=== PATIENT | male | born 1940 | race Caucasian/White ===

== ENCOUNTER → 2016-08-28 09:45 | Day surgery (SDC) | payer MEDICARE, OTHER ==
[~2016-08-28] VITALS: Ht 177.8 cm; Wt 86.6 kg
[~2016-08-28 09:45] MED LIST: ATIVAN0.5 MG PO; FLOMAX0.4 MG PO; MIRALAX527 GM PO; PROPAFENONE HC150 MG PO; PROPRANOLOL HCL80 MG PO; SYMBICORT 80-10.2 GM INH; XOPENEX 1.1.25 MG/3 UPD
[2016-08-28 10:27] VITALS: BP 160/77; Ht 177.8 cm; Wt 86.6 kg
--- NOTE | 2016-08-28 14:52 | NUR ---
1340-PATIENT ESCORTED OUT BY VOLUNTEER. WAITING FOR HIM AT [facility].
--- NOTE | 2016-08-29 09:34 | OP ---
PATIENT NAME: YASH SHIRLEY MEDICAL RECORD: [id number] :41 [facility] ADMISSION DATE: SURGEON: JOVANNA ACOSTA MD DATE OF OPERATION: 08/28/2016 SURGEON: Jovanna Acosta MD ANESTHESIA: MAC. PREOPERATIVE DIAGNOSES: Left renal 7-mm stone plus 4-mm stone. FINDINGS: Radiolucent stones, stones had to be visualized by injection of IV contrast. The 4-mm stone was not visible. PROCEDURE: Left extracorporeal shock wave lithotripsy (ESWL) times 3000 shocks. CLINICAL HISTORY: This is a 75-year-old male who has a prior history of kidney stones. He was treated by Dr. Garcia in the past. Most recently, he came in with left renal colic due to a 7-mm stone obstructing the left UP junction on CT scan. There is also a 4-mm lower pole stone. I inserted a left ureteral stent. During that procedure, it was noted that his stones seemed to be radiolucent. I then started him on potassium citrate to alkalinize the urine to dissolve possible uric acid stone. Subsequently, he had a KUB, which suggested a radiodense stone in the renal pelvis. We therefore are arranging for ESWL to try to break up the 7-mm stone. He is also highly irritated by the presence of the ureteral stent and he would like to have it out as soon as possible. DESCRIPTION OF PROCEDURE: The patient was placed in supine position on the lithotripsy treatment table. We performed fluoroscopy. We noted that the radiodensity is actually in the bowel and moves with the bowel. No radiodense stones could be seen. We therefore injected IV contrast. After waiting a suitable amount of time, we noted a good IVP on the right side. On the left side, the contrast was being drained out of the kidney by his stent. Therefore, I removed the stent entirely by pulling it out using the string which hanged out of the urethral meatus. This allowed us to see an IVP of the left kidney. We noted a visible shadow in the lower pole which would correspond to the 7-mm stone. We could not find the 4-mm stone, so it may be that both stones are actually sitting in the lower pole john at this moment. The stone was targeted in 2 planes and 3000 shocks was given to it. It was seen to break up well. The patient will resume using his potassium citrate to continue to dissolve the stone. I asked him to try to hang so that his head is lower than his bottom to let gravity help pull the stone material out of the lower pole john. Because his stone is radiolucent, I will order a CAT scan for him in 2 weeks' time to see what stone burden he has left. TRANSINT:[id number] Voice Confirmation ID: [id number] DOCUMENT ID: [id number] OPERATIVE REPORT [id number] YASH SHIRLEY ROBERT S MD at 0934 CC: [id number] DICTATION DATE: 08/28/16 1314 SKIVER OPERATOR: 08/28/16 2233 [facility] 08/28/16 [address] [address] [place] [address]
== END | disposition home or self-care (01) ==
LOC: D.OPS 09:45
DX: N13.5 Crossing vessel and stricture of ureter without hydronephrosis (principal); N20.0 Calculus of kidney; Z87.442 Personal history of urinary calculi; Z01.812 Encounter for preprocedural laboratory examination

== ENCOUNTER → 2016-09-08 07:49 | Outpatient (CLI) | payer MEDICARE, OTHER ==
[2016-08-28 10:27] VITALS: BMI 27.4
== END | disposition home or self-care (01) ==
LOC: D.RAD 09-04 10:00 → D.CT 07:49
DX: N20.0 Calculus of kidney (principal)

== ENCOUNTER 2016-10-02 05:51 | Day surgery (SDC) | payer MEDICARE, OTHER ==
[~2016-10-02] VITALS: Ht 177.8 cm; Wt 81.8 kg
[2016-10-02] MEDS ORDERED: NORVASC5 MG PO (09:01)
[2016-10-02] MEDS ORDERED: UROCIT-K10 MEQ PO (09:02)
[2016-10-02] MEDS ORDERED: NITROQUICK0.4 MG SL (09:04)
[2016-10-02 09:10] VITALS: BP 128/78; Ht 177.8 cm; Wt 81.8 kg
--- NOTE | 2016-10-02 11:43 | NUR ---
1045-PROCEDURE ABORTED DUE TO INABILITY TO VISUALIZE KIDNEY STONE.
--- NOTE | 2016-10-02 11:44 | NUR ---
1110-IV DISCONTINUED, CATHETER INTACT, COTTON BALL AND COBAN PLACED. DISCHARGE INSTRUCTIONS GIVEN TO PATIENT. 1120-PT. LEFT AMBULATORY WITH AT SIDE.
== END 2016-10-02 11:20 | disposition home or self-care (01) ==
LOC: D.OPS 05:51
DX: N20.0 Calculus of kidney (principal); Z01.812 Encounter for preprocedural laboratory examination

== ENCOUNTER 2016-10-15 17:15 | Inpatient (IN) | payer MEDICARE, OTHER ==
[~2016-10-15] VITALS: Ht 177.8 cm; Wt 82.7 kg
[~2016-10-15 17:15] MED LIST changes: +NITROQUICK0.4 MG SL; +NORVASC5 MG PO; +UROCIT-K10 MEQ PO
[2016-10-15 18:01] LABS: BASOPHILS 0.1 % (0-2); EOSINOPHILS 0.5 % (0-7); HEMATOCRIT 44.4 % (42.0-54.0); HEMOGLOBIN 14.8 g/dL (13.5-17.5); IMMATURE GRANULOCYTES 0.3 % (0-5); LYMPHOCYTES 4.2 % (15-50); MCH 30.1 pg (26.0-34.0); MCHC 33.3 g/dL (31.0-37.0); MCV 90.4 fL (80.0-100.0); MEAN PLATELET VOLUME 11.6 fL (7.4-10.4); MONOCYTES 6.1 % (2-11); NEUTROPHILS 88.8 % (40-80); PLATELET COUNT 156 10x3/uL (130-400); RBC 4.91 10x6/uL (4.20-6.10); RDW 14.7 % (11.5-14.5); WBC 10.2 10x3/uL (4.8-10.8)
[2016-10-15 18:29] LABS: ALBUMIN 3.6 g/dL (3.4-5.0); ALKALINE PHOSPHATASE 80 U/L (46-116); ALT (SGPT) 13 U/L (10-68); CALC OSMOLALITY 278 mosm/kg (275-300); CALCIUM 8.7 mg/dL (8.5-10.1); CARBON DIOXIDE 27.5 mmol/L (21.0-32.0); CHLORIDE - SERUM 101 mmol/L (98-107); CREATININE - SERUM 0.9 mg/dL (0.6-1.3); GLUCOSE 105 mg/dL (74-106); POTASSIUM - SERUM 3.8 mmol/L (3.5-5.1); PROTEIN - SERUM 7.8 g/dL (6.4-8.2); SODIUM 139 mmol/L (136-145); UREA NITROGEN 14 mg/dL (7-18); eGFR NON AFRICAN AMERICAN 88 mL/min (90-120)
[2016-10-15 20:05] LABS: APPEARANCE CLEAR (CLEAR); BILIRUBIN NEGATIVE (NEGATIVE); COLOR DK YELLOW (YELLOW); GLUCOSE NEGATIVE (NEGATIVE); KETONE NEGATIVE (NEGATIVE); LEUKOCYTE ESTERASE 1+ (NEGATIVE); NITRITE NEGATIVE (NEGATIVE); PROTEIN NEGATIVE (NEGATIVE); SPECIFIC GRAVITY 1.015 (1.005-1.020); UROBILINOGEN NORMAL (NORMAL)
[2016-10-15 20:08] LABS: BACTERIA FEW /hpf (NONE SEEN); EPITHELIAL CELLS 0-5 /hpf (0-5); RED CELLS - URINE RARE /hpf (0-5)
[2016-10-15 20:09] LABS: WHITE CELLS - URINE 25-50 /hpf (0-5)
--- NOTE | 2016-10-15 21:20 | NUR ---
PT ARRIVED ON UNIT VIA WHEELCHAIR ESCORTED BY ER NURSE. POSITIONED IN BED FOR COMFORT AND ORIENTED TO ROOM AND CALL LIGHT.
[2016-10-15 21:58] VITALS: BP 111/56; Ht 177.8 cm; Wt 82.7 kg
--- NOTE | 2016-10-15 21:58 | NUR ---
ADMISSION ASSESSMENT AND HISTORY COMPLETE.
[2016-10-16] VITALS: BP 100/50
--- NOTE | 2016-10-16 00:30 | NUR ---
SCANNED ORDER FOR HOME MEDICATIONS FROM DR GONZALES TO PHARMACY.
--- NOTE | 2016-10-16 00:30 | NUR ---
TELEMETRY PLACED ON PT PER ORDER.
[2016-10-16 04:00] VITALS: BP 112/43
--- NOTE | 2016-10-16 04:43 | NUR ---
PT RESTING QUIETLY AT THIS TIME. WILL CONTINUE TO MONITOR CLOSLEY FOR NEEDS.
--- NOTE | 2016-10-16 06:28 | NUR ---
PT RESTING QUEITLY AT THIS ASSESSMENT. TELEMETRY REPORTS SB AT THIS CHECK.
--- NOTE | 2016-10-16 07:20 | NUR ---
AWAKE AND ALERT RECEIVING RESPIRATORY TREATMENT AT THIS TIME. DENIES NEEDS. CALL LIGHT IN REACH, WILL CONTINUE WITH PLAN OF CARE.
[2016-10-16 08:31] VITALS: BP 124/53
[2016-10-16 10:45] LABS: BASOPHILS 0 % (0-2); EOSINOPHILS 0 % (0-7); HEMATOCRIT 40.3 % (42.0-54.0); HEMOGLOBIN 13.4 g/dL (13.5-17.5); IMMATURE GRANULOCYTES 0.1 % (0-5); LYMPHOCYTES 2.5 % (15-50); MCH 30.1 pg (26.0-34.0); MCHC 33.3 g/dL (31.0-37.0); MCV 90.6 fL (80.0-100.0); MEAN PLATELET VOLUME 11.7 fL (7.4-10.4); MONOCYTES 0.7 % (2-11); NEUTROPHILS 96.7 % (40-80); PLATELET COUNT 143 10x3/uL (130-400); RBC 4.45 10x6/uL (4.20-6.10); RDW 14.7 % (11.5-14.5)
[2016-10-16 10:50] LABS: WBC 7.2 10x3/uL (4.8-10.8)
[2016-10-16 11:03] LABS: ANION GAP 19.2 mmol/L (8-16); BILIRUBIN - TOTAL 0.32 mg/dL (0.2-1.3); CALCIUM 8.2 mg/dL (8.5-10.1); CARBON DIOXIDE 21.3 mmol/L (21.0-32.0); POTASSIUM - SERUM 3.5 mmol/L (3.5-5.1); PROTEIN - SERUM 6.9 g/dL (6.4-8.2)
[2016-10-16 11:09] LABS: CREATININE - SERUM 1.3 mg/dL (0.6-1.3)
[2016-10-16 12:00] VITALS: BP 123/62
[2016-10-16 15:47] VITALS: BP 139/62
[2016-10-16 19:50] VITALS: BP 103/52
--- NOTE | 2016-10-17 02:47 | NUR ---
2400) REQUESTED NOT TO BE AWAKENED IF SLEEP FOR VS
--- NOTE | 2016-10-17 03:43 | NUR ---
PT RESTING QUIETLY, EYES CLOSED. RESP EASY, UNLABORED. NO DISTRESS NOTED. CONTINUE CRULLER MAKER'S PLAN OF CARE.
[2016-10-17 04:00] VITALS: BP 115/52
[2016-10-17 05:03] LABS: BASOPHILS 0 % (0-2); EOSINOPHILS 1.2 % (0-7); HEMATOCRIT 38.2 % (42.0-54.0); HEMOGLOBIN 12.8 g/dL (13.5-17.5); IMMATURE GRANULOCYTES 0.2 % (0-5); LYMPHOCYTES 7.7 % (15-50); MCH 30.2 pg (26.0-34.0); MCHC 33.5 g/dL (31.0-37.0); MCV 90.1 fL (80.0-100.0); MEAN PLATELET VOLUME 11.8 fL (7.4-10.4); MONOCYTES 7.7 % (2-11); NEUTROPHILS 83.2 % (40-80); PLATELET COUNT 137 10x3/uL (130-400); RBC 4.24 10x6/uL (4.20-6.10); RDW 14.6 % (11.5-14.5)
[2016-10-17 05:04] LABS: WBC 9.3 10x3/uL (4.8-10.8)
[2016-10-17 05:22] LABS: ALBUMIN 2.8 g/dL (3.4-5.0); ALKALINE PHOSPHATASE 55 U/L (46-116); ALT (SGPT) 12 U/L (10-68); BILIRUBIN - TOTAL 0.28 mg/dL (0.2-1.3); CALCIUM 8.1 mg/dL (8.5-10.1); CHLORIDE - SERUM 104 mmol/L (98-107); POTASSIUM - SERUM 4.1 mmol/L (3.5-5.1); PROTEIN - SERUM 6.3 g/dL (6.4-8.2); SODIUM 139 mmol/L (136-145); UREA NITROGEN 22 mg/dL (7-18)
[2016-10-17 05:23] LABS: CALC OSMOLALITY 280 mosm/kg (275-300); CARBON DIOXIDE 29.8 mmol/L (21.0-32.0); CREATININE - SERUM 0.9 mg/dL (0.6-1.3); GLUCOSE 102 mg/dL (74-106); eGFR NON AFRICAN AMERICAN 88 mL/min (90-120)
--- NOTE | 2016-10-17 07:30 | NUR ---
PT ASSESSMENT COMPLETE AWAKE AND ALERT ORINETED X 3 LUNGS CLAER BIALTERAL NO DISTRESS NOTED VOICES ALL NEEDS TO STAFF. LFA SL NOTED AMBULATES WELL WITH STEADY GAIT.
[2016-10-17 07:55] VITALS: BP 91/46
--- NOTE | 2016-10-17 08:23 | NUR ---
Patient Name: YASH SHIRLEY Admission Status: ER Accout number: [id number] Admission Date: 10-16-2016 : 1940 Admission Diagnosis: Attending: LUCY Current LOS: 1 Anticipated DC Date: 10-20-2016 Planned Disposition: Home Primary Insurance: MEDICARE A & B Discharge Planning Comments: CM MET WITH PATIENT REGARDING D/C NEEDS AND PLANS. PATIENT STATED HE LIVES WITH HIS (ENEDELIA) AND SHE WILL DRIVE HIM HOME AT DISCHARGE. PATIENT STATED HE HAS NO STEPS OR STAIRS AT HIS HOME. PATIENT IS INDEPENDENT WITH HIS CARE AND HAS A NEBULIZER AT HOME. PATIENTS PCP IS DR. THOMAS AND PHARMACY IS [facility]. PATIENT DOES NOT WANT HOME HEALTH AT DISCHARGE. CM WILL CONTINUE TO FOLLOW PATIENT WITH D/C NEEDS AND PLANS. PCP DR. WILLIAM [facility] [phone] ENEDELIA () [phone] Manager Post: Charisma Mciknley Is the patient Alert and Oriented? Yes 0 * How many steps to enter\exit or inside your home? 0 0 * PCP DR. THOMAS 0 * Pharmacy [facility] 0 * Preadmission Environment Home with Family 0 * ADLs Independent 0 * Equipment Nebulizer 0 * List name and contact numbers for known caregivers / representatives who currently or will assist patient after discharge: ENEDELIA () [phone] 0 * Community resources currently utilized None 0 * Additional services required to return to the preadmission environment? Yes 0 * Can the patient safely return to the preadmission environment? Yes 0 * Has this patient been hospitalized within the prior 30 days at any hospital? No 0 Grand Total: 0
[2016-10-17] MEDS ORDERED: FLORAJEN3 CAPS460 MG PO (10:22)
--- NOTE | 2016-10-17 10:23 | NUR ---
PT UP AMBULATING IN HALLWAY HAS DISCHARGE ORDERS IN PER PRIMARY MD. WILL DISCHARGE PER ORDER
[2016-10-17] MEDS ORDERED: BACTRIM DS TABL1 TAB PO (10:25)
--- NOTE | 2016-10-17 11:00 | NUR ---
PT AOX4 RESP EVEN AND NONLABORED PT HERE FOR UTI FOR THIS VISIT IV TO LEFT FOREARM PATENT AND INTACT AT THIS TIME SRX2 BED AT LOWEST SETTING CALL LIGHT WITHIN REACH WILL CONTINUE TO MONITOR
--- NOTE | 2016-10-17 11:44 | NUR ---
PT GIVEN DISCHARGE INSTRUCTIONS EXPRESSED UNDERSTANDING OF FOLOW UP APPTS AND NEW MEDS. PIV DISCONTINUED PER ORDER IN TACT.
== END 2016-10-17 11:46 | disposition home or self-care (01) | DRG 690 ==
LOC: D.ER 17:15 → D.MS 20:33 → OBSVTIME 20:33 → D.MS 10-16 15:59
PROVIDERS: Emergency Medicine; Physician Assistant Medical; ADMIT Family Medicine
DX: N39.0 Urinary tract infection, site not specified (principal); I48.91 Unspecified atrial fibrillation; I25.10 Atherosclerotic heart disease of native coronary artery without angina pectoris; N20.0 Calculus of kidney; F41.9 Anxiety disorder, unspecified; N40.1 Benign prostatic hyperplasia with lower urinary tract symptoms; N13.8 Other obstructive and reflux uropathy; E86.0 Dehydration

== ENCOUNTER 2017-02-21 11:46 | Emergency (ER) | payer MEDICARE, OTHER ==
[2016-10-15 21:58] VITALS: BMI 26.1
[~2017-02-21 11:46] MED LIST changes: +BACTRIM DS TABL1 TAB PO; +FLORAJEN3 CAPS460 MG PO
[2017-02-21 12:34] LABS: BASOPHILS 0.3 % (0-2); EOSINOPHILS 1.6 % (0-7); HEMOGLOBIN 14.6 g/dL (13.5-17.5); IMMATURE GRANULOCYTES 0.6 % (0-5); LYMPHOCYTES 20.4 % (15-50); MCH 30.9 pg (26.0-34.0); MCHC 33.2 g/dL (31.0-37.0); MCV 93.2 fL (80.0-100.0); MEAN PLATELET VOLUME 11.8 fL (7.4-10.4); NEUTROPHILS 69.1 % (40-80); PLATELET COUNT 153 10x3/uL (130-400); RBC 4.72 10x6/uL (4.20-6.10); RDW 13.9 % (11.5-14.5); WBC 6.4 10x3/uL (4.8-10.8)
[2017-02-21 12:52] LABS: ALBUMIN 3.8 g/dL (3.4-5.0); ALKALINE PHOSPHATASE 64 U/L (46-116); ALT (SGPT) 16 U/L (10-68); BILIRUBIN - TOTAL 0.33 mg/dL (0.2-1.3); CALC OSMOLALITY 287 mosm/kg (275-300); CARBON DIOXIDE 30.2 mmol/L (21.0-32.0); CHLORIDE - SERUM 104 mmol/L (98-107); GLUCOSE 95 mg/dL (74-106); PROTEIN - SERUM 7.3 g/dL (6.4-8.2); SODIUM 142 mmol/L (136-145); UREA NITROGEN 27 mg/dL (7-18); eGFR NON AFRICAN AMERICAN 77 mL/min (90-120)
[2017-02-21 13:04] LABS: CHOL - HDL RATIO 2.2 ratio (2.3-4.9); CHOLESTEROL, TOTAL 154 mg/dL (0-200); CKMB 1.5 U/L (0.0-3.6); CREATINE KINASE 36 UL (21-232); HDL CHOLESTEROL 69 mg/dL (32-96); LDL CHOLESTEROL 62 mg/dL (0-100); LDL-HDL RATIO 0.9 ratio (1.5-3.5); PRO BNP 856 pg/mL (0-450); TRIGLYCERIDE 116 mg/dL (30-200); TROPONIN-I 0.028 ng/mL (0.000-0.060)
== END 2017-02-21 17:45 | disposition home or self-care (01) ==
LOC: D.ER 11:46
PROVIDERS: Family Medicine
DX: R07.89 Other chest pain (principal); I10 Essential (primary) hypertension

== ENCOUNTER 2017-06-02 08:35 | Inpatient (IN) | payer MEDICARE, OTHER ==
[~2017-06-02] VITALS: Ht 177.8 cm; Wt 85.3 kg
--- NOTE | ~2017-06-02 | EC ---
PATIENT:YASH SHIRLEY DATE OF SERVICE: 06/02/17 SEX: M MEDICAL RECORD: [id number] DATE OF : [birth year] LOCATION:D.M2 D.211 AGE OF PATIENT: 76 ADMISSION DATE: 06/02/17 REFERRING PHYSICIAN: INTERPRETING PHYSICIAN: MULUGETA REID MD ECHOCARDIOGRAM REPORT ECHO CHARGES 4 ECHO COMPLETE CLINICAL DIAGNOSIS: A-FIB ECHOCARDIOGRAPHIC MEASUREMENTS (adult normal given) AC root (d.<3.7cm) 3.0 cm LV Septum d (<1.2 cm> 1.6 cm Valve Excursion 1.2 cm LV Septum (systole) 2.1 cm Left Atria (s.<4.0cm> 4.8 cm LVPW d(<1.2cm) 1.3 cm RV (d.<2.3cm) 3.4 cm LVPW (sytole) 2.3 cm LV diastole(<5.6CM) 7.0 cm MV E-F(>70mm/sec) cm LV systole 4.9 cm LVOT Diameter 1.9 cm MV exc.(>10mm) cm Est.ejection fraction (50-75%) % Pericardial Effusion N DOPPLER: LVIT cm/sec A 133 cm/sec E 71.0 cm/sec LA cm/sec RVSP 41.0 mmHg LVOT 124 cm/sec AOP1/2T 724.0m/s Asc. Ao 346 cm/sec RVOT 78.0 cm/sec RA cm/sec PA 128 cm/sec AV Gradient Peak 48.0 mmHg AV Mean 21.4 mmHg AV Area 0.8 cm MV Gradient Peak 7.9 mmHg MV Mean 3.3 mmHg MV Area cm COMMENTS: Body Piercer: Fartun [employer] Principal: 3 Dr. Cruz TAPE# PACS DATE OF SERVICE: 06/02/2017 Adequate 2D echo, color-flow and spectral Doppler, and M-Mode. LVH is present. LV internal dimensions are normal. LV is mildly globally hypokinetic with reduced EF. Estimated EF of 40% to 45%. Aortic valve is calcified with restriction of leaflet motion. Peak gradient of 48 mmHg, putting this in the moderate range. Left atrium is dilated at 4.8 cm. Mitral valve shows no prolapse. Mild mitral annular calcification, mild MR. Right-sided chamber is grossly normal. Mild TR. ECHOCARDIOGRAM REPORT [id number] YASH SHIRLEY TRANSINT:[id number] Voice Confirmation ID: [id number] DOCUMENT ID: [id number] MULUGETA REID MD at 1400 CC: [id number] DICTATION DATE: 06/03/17 1522 DIRECT CARE STAFFER: 06/03/17 1748 DIS IN 06/04/17 [place] [id number] [place] [id number]
--- NOTE | ~2017-06-02 | CN ---
PATIENT NAME:YASH CASTELLANOS MEDICAL RECORD: [id number] : 41 LOCATION:D. D.2110 ADMIT DATE: 06/02/17 ACCOUNT: [id number] CONSULTING PHYSICIAN: MULUGETA REID MD REFERRING PHYSICIAN: JEFF BALLESTEROS MD DATE OF CONSULTATION: 06/03/2017 HISTORY OF PRESENT ILLNESS: Yash Castellanos is a 76-year-old gentleman with a known cardiovascular history, status post intervention status post recent repair of peripheral vascular disease at [facility]. He developed bronchitis, actually had wound dehiscence secondary to cough while at [facility] and admitted with atrial fibrillation, bronchitis/pneumonitis, and volume overload. We are asked to see him concerning his cardiovascular status. PAST MEDICAL HISTORY: Includes: 1. History of coronary artery disease. 2. Mild myopathy. 3. Peripheral vascular disease. 4. Hypertension. 5. Dyslipidemia. ALLERGIES: VALIUM AND LEVAQUIN. MEDICATIONS: Include Xopenex q.6 hours, Flomax 0.4 every day, propafenone 75 every day, amlodipine 5 every day. SOCIAL HISTORY: He lives in [place], nonsmoker and nondrinker. He usually does exercise on a regular basis. He takes care of his ADLs. REVIEW OF SYSTEMS: The patient reports easy bruising but reports no swollen glands. The patient reports no fever, no night sweats, no significant weight gain, no significant weight loss. No significant exercise tolerance. The patient reports no dry eyes, no irritation, no vision change. Patient reports no difficulty hearing and no ear pain. Patient reports no frequent nose bleeds or nose and sinus problems. Patient reports on arm pain on exertion. No shortness of breath while lying down. No history of heart murmur. Patient reports no cough, no wheezing or coughing up blood. Patient reports no abdominal pain, no vomiting. Normal appetite. No diarrhea and not vomiting blood. No nausea and no constipation. Patient reports no incontinence. No difficulty urinating. No hematuria. No increased frequency. Patient reports no muscle aches. No weakness, no arthralgias, no back pain. No swelling of the extremities. Patient reports no abnormal mole, no jaundice, no rashes. Reports no loss of consciousness. No weakness and no numbness. No seizures, dizziness, or headaches. The patient reports no depression, no sleep disturbance, feeling safe in a relationship and no alcohol abuse. Patient reports on fatigue. Reports no runny nose or sinus pressure. No itching, no hives, and no frequent sneezing. PHYSICAL EXAMINATION: GENERAL: Pleasant gentleman in no acute distress. VITAL SIGNS: Blood pressure 129/50, pulse 66 and regular. HEENT: Normocephalic, atraumatic. NECK: No bruits. HEART: Currently is regular. II/ systolic ejection murmur. LUNGS: Good air excursion. CONSULT REPORT [id number] YASH CASTELLANOS ABDOMEN: Soft, nontender. EXTREMITIES: Pulses 2+. No edema. IMPRESSION: Atrial fibrillation, volume overload. Suspect mitigating factors underlying upper respiratory tract infection. He is back in sinus rhythm. We would for short term increased baseline antiarrhythmic, add Aldactone. We will check echocardiographic study as well. Further recommendations based on above. TRANSINT:[id number] Voice Confirmation ID: [id number] DOCUMENT ID: [id number] MULUGETA REID MD at 1400 CC: [id number] DICTATION DATE: 06/03/17 0853 DERIVATIVES TRADER: 06/03/17 0936 DIS IN 06/04/17 [facility] [address] [id number]
[2017-06-02 09:32] LABS: ALBUMIN 2.8 g/dL (3.4-5.0); ALKALINE PHOSPHATASE 54 U/L (46-116); ALT (SGPT) 19 U/L (10-68); CALC OSMOLALITY 276 mosm/kg (275-300); CALCIUM 8.4 mg/dL (8.5-10.1); CARBON DIOXIDE 26.5 mmol/L (21.0-32.0); CHLORIDE - SERUM 103 mmol/L (98-107); CREATININE - SERUM 0.8 mg/dL (0.6-1.3); GLUCOSE 105 mg/dL (74-106); POTASSIUM - SERUM 3.9 mmol/L (3.5-5.1); PROTEIN - SERUM 6.4 g/dL (6.4-8.2); SODIUM 139 mmol/L (136-145); UREA NITROGEN 11 mg/dL (7-18); eGFR NON AFRICAN AMERICAN > 90 mL/min (90-120)
[2017-06-02 09:36] LABS: TROPONIN-I < 0.017 ng/mL (0.000-0.060)
[2017-06-02 09:53] LABS: BASOPHILS 0.3 % (0-2); EOSINOPHILS 1.1 % (0-7); HEMOGLOBIN 10.3 g/dL (13.5-17.5); IMMATURE GRANULOCYTES 0.7 % (0-5); LYMPHOCYTES 9.5 % (15-50); MCH 30.7 pg (26.0-34.0); MCHC 32.2 g/dL (31.0-37.0); MCV 95.2 fL (80.0-100.0); MEAN PLATELET VOLUME 10.9 fL (7.4-10.4); MONOCYTES 10.5 % (2-11); NEUTROPHILS 77.9 % (40-80); PLATELET COUNT 225 10x3/uL (130-400); RBC 3.36 10x6/uL (4.20-6.10); RDW 14.3 % (11.5-14.5); WBC 9.5 10x3/uL (4.8-10.8)
[2017-06-02 10:30] LABS: INR 1.09 (0.85-1.17); PROTIME 13.7 SECONDS (11.6-15.0)
[2017-06-02 10:32] LABS: D-DIMER-QUANTITATIVE 2.27 ug/mLFEU (0.20-0.54)
[2017-06-02 10:39] LABS: CKMB 0.5 U/L (0.0-3.6); CREATINE KINASE 45 UL (21-232); PRO BNP 2064 pg/mL (0-450)
[2017-06-02 15:43] LABS: CKMB 0.9 U/L (0.0-3.6); CREATINE KINASE 38 UL (21-232)
[2017-06-02 15:44] LABS: TROPONIN-I < 0.017 ng/mL (0.000-0.060)
[2017-06-02] MEDS ORDERED: PROPAFENONE HC150 MG PO (18:08)
[2017-06-02 18:10] VITALS: BP 147/64; BMI 27.7
[2017-06-02 19:00] VITALS: BP 123/58
[2017-06-02 21:09] LABS: CKMB 0.8 U/L (0.0-3.6); CREATINE KINASE 33 UL (21-232)
[2017-06-02 21:12] LABS: TROPONIN-I < 0.017 ng/mL (0.000-0.060)
[2017-06-03] VITALS (7 sets, daily range): BP systolic 115–135; BP diastolic 41–62; Ht 177.8 cm; Wt 85.3 kg
[2017-06-03 03:14] LABS: BASOPHILS 0 % (0-2); EOSINOPHILS 0 % (0-7); HEMATOCRIT 28.6 % (42.0-54.0); HEMOGLOBIN 9.4 g/dL (13.5-17.5); IMMATURE GRANULOCYTES 0.7 % (0-5); LYMPHOCYTES 3.4 % (15-50); MCH 30.8 pg (26.0-34.0); MCHC 32.9 g/dL (31.0-37.0); MCV 93.8 fL (80.0-100.0); MEAN PLATELET VOLUME 10.1 fL (7.4-10.4); MONOCYTES 3.2 % (2-11); NEUTROPHILS 92.7 % (40-80); PLATELET COUNT 232 10x3/uL (130-400); RBC 3.05 10x6/uL (4.20-6.10); RDW 14.2 % (11.5-14.5)
[2017-06-03 03:43] LABS: ALBUMIN 2.5 g/dL (3.4-5.0); ALKALINE PHOSPHATASE 53 U/L (46-116); ALT (SGPT) 16 U/L (10-68); CALCIUM 8.5 mg/dL (8.5-10.1); CARBON DIOXIDE 28.4 mmol/L (21.0-32.0); CHLORIDE - SERUM 102 mmol/L (98-107); CKMB 0.7 U/L (0.0-3.6); CREATINE KINASE 22 UL (21-232); CREATININE - SERUM 0.7 mg/dL (0.6-1.3); PROTEIN - SERUM 6.1 g/dL (6.4-8.2); SODIUM 138 mmol/L (136-145); eGFR NON AFRICAN AMERICAN > 90 mL/min (90-120)
[2017-06-03 03:47] LABS: CALC OSMOLALITY 280 mosm/kg (275-300); GLUCOSE 161 mg/dL (74-106); TROPONIN-I < 0.017 ng/mL (0.000-0.060); UREA NITROGEN 17 mg/dL (7-18)
[2017-06-03 12:57] LABS: CKMB 0.9 U/L (0.0-3.6); CREATINE KINASE 36 UL (21-232)
[2017-06-03 12:58] LABS: TROPONIN-I < 0.017 ng/mL (0.000-0.060)
[2017-06-03 15:46] LABS: CREATINE KINASE 44 UL (21-232)
[2017-06-03 16:00] LABS: TROPONIN-I < 0.017 ng/mL (0.000-0.060)
[2017-06-04 04:00] VITALS: BP 133/62
[2017-06-04 07:44] VITALS: BP 142/80
[2017-06-04] MEDS ORDERED: RYTHMOL PO (10:42)
[2017-06-04] MEDS ORDERED: ALDACTONE25 MG PO (10:42)
[2017-06-04] MEDS ORDERED: PROPAFENONE HC225 MG PO (10:58)
== END 2017-06-04 12:29 | disposition home or self-care (01) | DRG 190 ==
LOC: D.ER 08:35 → D.EDHOLD 14:57 → D.M2 14:57
PROVIDERS: Family Medicine; Family Medicine Adult Medicine
DX: J44.0 Chronic obstructive pulmonary disease with (acute) lower respiratory infection (principal); J18.9 Pneumonia, unspecified organism; J44.1 Chronic obstructive pulmonary disease with (acute) exacerbation; I48.2 Chronic atrial fibrillation; I25.10 Atherosclerotic heart disease of native coronary artery without angina pectoris; I73.9 Peripheral vascular disease, unspecified; F41.9 Anxiety disorder, unspecified; I10 Essential (primary) hypertension; Z87.891 Personal history of nicotine dependence

== ENCOUNTER → 2017-06-18 15:56 | Outpatient (CLI) | payer MEDICARE, OTHER ==
[2017-06-03 12:48] VITALS: BMI 27.3
[~2017-06-18 15:56] MED LIST changes: +ALDACTONE25 MG PO; +HYDROCODONE-APA1 TAB PO; +PROPAFENONE HC225 MG PO; +RYTHMOL PO
[2017-06-24 18:10] LABS: AEROBE ID Final report (())
[2017-06-28 17:08] LABS: AEROBE ID Final report (())
== END | disposition home or self-care (01) ==
LOC: D.LABREF 15:56
PROVIDERS: Internal Medicine Cardiovascular Disease
DX: L02.214 Cutaneous abscess of groin (principal)

== ENCOUNTER 2017-06-23 11:22 | Inpatient (IN) | payer MEDICARE, OTHER ==
[~2017-06-23] VITALS: Ht 175.3 cm; Wt 79.8 kg
--- NOTE | ~2017-06-23 | HP ---
PATIENT: YASH SHIRLEY MEDICAL RECORD: [id number] ACCOUNT: [id number] LOCATION:D.MS [address]2225 : 41 ADMISSION DATE: 06/23/17 HISTORY AND PHYSICAL EXAMINATION UPDATED HISTORY AND PHYSICAL NameYASH SHIRLEY (76yo, M) ID# [id number]. Date/Time06/18/2017 01:99WXZRF57/03/1942Service Dept.NPP_[facility] ClinicProviderEDSANJEEV AVILA MDInsuranceMed Primary: [place] Insurance # : [id number] PCP : KENIA THOMAS Referring Provider Name : KENIA THOMAS Employer Name : RETIRED Med Secondary: [employer] (MEDICARE SUPPLEMENT) Insurance # : [id number] Referring Provider Name : KENIA THOMAS Employer Name : RETIRED Prescription: CMX - Member is eligible. Prescription: ESI1 - Member is eligible. Chief Complaint Followup: Abdominal aortic aneurysm s/p femoral endarterectomy at [facility] set up for EVS at [facility] when healed two months f/u Patient's Care Team Primary Care Provider (): KENIA THOMAS: [facility], [address] [place] [place] [address], , Referring Provider (): KENIA THOMAS: [facility] [address] [place] [address], , Urologist: JOVANNA ACOSTA MD: [address] [place] [address], , Patient's Pharmacies [facility] [address] (ERX): [address] [place] [address] [place] [address], , Vitals BP:130/80 sitting L arm 06/18/2017 01:15 pmBP Cuff Size:adult 06/18/2017 01:15 pmHR:100,murmur 06/18/2017 01:15 pmHt:5 ft 9 in 06/18/2017 01:12 pmWt:186 lbs 06/18/2017 01:15 pmNotes:states L groin is draining and has hematoma below it. Goes back to [place] 06/30 for f/u.06/18/2017 01:16 pmBMI:27.5 06/18/2017 01:15 pmAllergies Reviewed Allergies ATROVENTLEVAQUINSPIRIVA WITH HANDIHALERMedications Reviewed Medications amLODIPine 5 mg bboqug25/27/18 filledCaremarkatorvastatin 40 mg mujitg75/23/18 filledCaremarkcephALEXin 500 mg ihwdpsz41/23/18 filledCaremarkfluconazole 100 mg /27/18 filledCaremarkHYDROcodone 5 mg-acetaminophen 325 mg amicuc46/05/17 filledCaremarkLORazepam 0.5 mg olwdle74/12/16 filledCaremarkmontelukast 10 mg tablet Take 1 tablet(s) every day by oral route for 30 days.03/27/16 prescribedAnuja Jonesupirocin 2 % topical /27/18 filledCaremarknitroglycerin 0.[address] by sublingual route.05/31/16 filledCaremarkpolyethylene glycol 3350 17 gram/dose oral pvcmse71/28/18 jsrlwxGugqkcagSewylumsp23/08/18 enteredErika Watkinspropafenone 150 mg xgkvni41/03/18 filledCaremarkpropafenone 225 mg uagzsw03/22/18 filledCaremarkraNITIdine 150 mg tablet Take 1 tablet(s) twice a day by oral route.04/23/17 enteredErika Watkinsspironolactone 25 mg /22/18 filledCaremarksulfamethoxazole 800 mg-trimethoprim 160 mg hpnlep13/27/18 filledCaremarkSymbicort 160 mcg-4.5 mcg/actuation HFA aerosol inhaler Inhale 2 puff(s) twice a day by inhalation route.02/13/14 filledPRESCRIPTION SOLUTIONStamsulosin 0.4 mg fjlfaeb58/15/17 filledCaremarktraMADol 50 mg /19/18 filledCaremarkVentolin HFA 90 mcg/actuation aerosol jkuzjbo54/12/18 filledCaremarkXopenex 1.25 mg/3 mL solution for nebulization USE ONE VIAL VIA NEBULIZER QID08/17/13 filledsurescripts Dexilant HISTORY AND PHYSICAL [id number] YASH SHIRLEY Problems Reviewed Problems Kidney stone - Onset: 09/24/2016 Bilateral carotid artery stenosis - Onset: 09/24/2009 Abdominal aortic aneurysm - Onset: 09/24/2016 Achilles tendinitis Tracheobronchitis Chronic obstructive lung disease Asthma Gastroesophageal reflux disease Large prostate - Onset: 06/05/2016 Chest pain Diaphragmatic hernia Pleural effusion Pulmonary hypertension Abdominal aortic aneurysm without rupture - Onset: 09/19/2016 Hiatal hernia Family History Reviewed Family History Mother- Malignant tumor of lung - previously recorded as Cancer, LungFather- Malignant neoplastic disease - esphogeal (previously recorded as Cancer, other)Social History Reviewed Social History General Occupation: Retired (Notes: 2006) Marital status: Smoking Status: Never smoker Caffeine intake: Heavy Surgical History Reviewed Surgical History Removal of gallbladder - open [place] Laparoscopic hiatus hernia repair - 01/02/2015 Laparoscopic hiatus hernia repair - 01/02/2015 Cystoscopy - 06/19/2014 Cataract surgery complex - 11/17/2013 Other - 11/11/2010 - EGD Other - 2009 - PTCA with stenting Other - 1997 - stent LLE Past Medical History Reviewed Past Medical History Atrial fibrillation: Y COPD: Y Heart Disease: Y - CAD Hiatal Hernia: Y High Blood Pressure: Y Joint Pain or Swelling: Y Documents for Discussion N/A Screening None recorded. HPI Peripheral Vascular Disease Reported by patient. Location: left groin with open sore and swollen knot at medial end of incision Severity: not limiting Associated Symptoms: skin discoloration abdominal aortic aneurysm ROS Patient reports weight loss (10 lbs) and exercise intolerance (claudication bilateral lower extremity) but reports no fever, no night sweats, and no significant weight gain. He reports difficulty hearing but reports no ear pain. He reports shortness of breath when walking but reports no chest pain, no arm pain on exertion, no shortness of breath when lying down, no palpitations, and no known heart murmur. He reports shortness of breath but reports no cough, no wheezing, and no coughing up blood. He reports abdominal pain but reports no vomiting, normal HISTORY AND PHYSICAL [id number] YASH SHIRLEY appetite, no diarrhea, not vomiting blood, no nausea, and no constipation. He reports difficulty urinating but reports no incontinence, no hematuria, and no increased frequency. He reports muscle aches, muscle weakness, and back pain but reports no arthralgias/joint pain and no swelling in the extremities. He reports fatigue. He reports no dry eyes, no irritation, and no vision change. He reports no frequent nosebleeds and no nose/sinus problems. He reports no sore throat, no bleeding gums, no snoring, no dry mouth, no mouth ulcers, no oral abnormalities, and no teeth problems. He reports no abnormal mole, no jaundice, and no ra s hes. He reports no loss of consciousness, no weakness, no numbness, no seizures, no dizziness, and no headaches. He reports no depression, no sleep disturbances, feeling safe in relationship, and no alcohol abuse. He reports no swollen glands and no bruis ing. He reports no runny nose, no sinus pressure, no itching, no hives, and no frequent sneezing. ROS as noted in the HPI Physical Exam Patient is a 76-year-old male. Constitutional: General Appearance well nourished and developed and healthy-appearing. Level of Distress NAD. Ambulation ambulating normally. Cardiovascular: Apical Impulse not displaced or no thrill. Heart Auscultation normal s1 and s2; no murmurs, rubs, or gallops; and RRR. Arterial Pulses no abdominal aorta bruits, femoral bruits, or popliteal bruits; popliteal diminished (bilaterally) and dorsalis pedis not palpable(bilaterally); and 2+ bilateral, carotid 2+ bilateral, and femoral 2+ bilateral. Edema no edema or varicosities. Lungs: Repiratory Effort no dyspnea and use of accessory muscles; self PEEP. Percussion no dullness or flatness and hyperresonance. Auscultation no wheezing, rhonchi, or rales / crackles and breathing sounds normal, CTA except as noted, and diminished air movement. Abdomen: Bowl Sounds normal. Inspection and Palpation no tenderness, guarding, masses, or rebound tenderness and soft and non-distended; abdominal aortic aneurysm nontender left groin incision necrotic skin however there are no deep sinus Appears to be superficial. Liver non-tender and no hepatomegaly. Spleen non-tender and no splenomegaly. Hernia none palpable. Musculoskeletal System: Gait And Stance normal gait and stance. Digits and Nails normal nails and no cyanosis. Neurologic: Cranial Nerves grossly intact. Reflexes DTRs 2+ bilaterally throughout. Sensation grossly intact. Lymph Nodes: Lymph Nodes no cervical LAD, supraclavicular LAD, axillary LAD, or inguinal LAD. Eyes: Lids and Conjunctivae no discharge or pallor and non-injected. Pupils PERRLA. Cornea grossly intact. EOM EOMI. Lens clear. Sclerae non-icteric. Neck: Neck no masses, enlarged lymph nodes, or carotid bruits and supple and trachea midline. Thyroid no enlargement or nodules and non-tender. Skin: Inspection and Palpation no rash, lesions, ulcers, jaundice, or abnormal nevi. Assessment / Plan status post left femoral endarterectomy at [facility] in [facility] HISTORY AND PHYSICAL [id number] YASH SHIRLEY 1. Abdominal aortic aneurysm I71.4: Abdominal aortic aneurysm, without rupture Discussion Notes Will refer to the wound clinic The patient is to keep his appointment in [place] And return to our clinic in 3-4 weeks LISSETTE AVILA MD at 1352 CC: [id number] DICTATION DATE: 06/18/17 1330 PHOTOGRAPH EDITOR: ISIDRO 06/23/17 1213 ADM IN [facility] [address] [facility] [place] [place] [address]
--- NOTE | ~2017-06-23 | HP ---
PATIENT: YASH SHIRLEY MEDICAL RECORD: [id number] ACCOUNT: [id number] LOCATION:D. DErica2225 : 41 ADMISSION DATE: 06/23/17 HISTORY AND PHYSICAL EXAMINATION YASH Allen (76yo, M) ID# [id number]. Date/Time04/23/2017 02:44PVEID79/03/1942Service Dept.NPP_[facility] ClinicProviderEDSANJEEV AVILA MDInsuranceMed Primary: [place] Insurance # : [id number] PCP : KENIA THOMAS Referring Provider Name : KENIA THOAMS Employer Name : RETIRED Med Secondary: [employer] (MEDICARE SUPPLEMENT) Insurance # : [id number] Referring Provider Name : KENIA THOMAS Employer Name : RETIRED Prescription: CMX - Member is eligible. Prescription: ESI1 - Member is eligible. Chief Complaint Followup: Abdominal aortic aneurysm without rupture following AAA, 2nd referral pt declined to f/u in 2017 for same Patient's Care Team Primary Care Provider (): [facility], [address] [place] [address], , Referring Provider (): KENIA THOMAS: [facility], [address] [place] [address], , Urologist: JOVANNA ACOSTA MD: [address] [address], , Patient's Pharmacies [facility] 59 0 (ERX): [address] [place] [address] [place] [address], , Vitals BP:170/90 sitting L arm 04/23/2017 02:15 pm 174/90 sitting R arm 04/23/2017 02:15 pmBP Cuff Size:adult 04/23/2017 02:15 pm adult 04/23/2017 02:15 pmHR:88,reg 04/23/2017 02:16 pmHt:5 ft 9 in 04/23/2017 01:41 pmWt:193 lbs 04/23/2017 02:16 pmNotes:not sure he's having any AAA issues. Has anxiety and also some digestive issues 04/23/2017 02:16 pmBMI:28.5 04/23/2017 02:16 pmAllergies Reviewed Allergies ATROVENTLEVAQUINSPIRIVA WITH HANDIHALERMedications Reviewed Medications amLODIPine 5 mg rkgupf18/13/18 filledCaremarkHYDROcodone 5 mg-acetaminophen 325 mg ermbhg26/05/17 filledCaremarkLORazepam 0.5 mg fvoahv12/12/16 filledCaremarkmontelukast 10 mg tablet Take 1 tablet(s) every day by oral route for 30 days.03/27/16 prescribedDahlia Jonesoglycerin 0.[address] by sublingual route.05/31/16 filledCaremarkpolyethylene glycol 3350 17 gram/dose oral dsyuwl92/04/18 rveaeuRvgdlqbfWqjqbbwxd13/08/18 enteredErika Watkinspropafenone 150 mg voxavz95/03/18 filledCaremarkraNITIdine 150 mg tablet Take 1 tablet(s) twice a day by oral route.04/23/17 enteredErika Watkinssulfamethoxazole 800 mg-trimethoprim 160 mg odqjbv18/04/17 filledCaremarkSymbicort 160 mcg-4.5 mcg/actuation HFA aerosol inhaler Inhale 2 puff(s) twice a day by inhalation route.02/13/14 filledPRESCRIPTION SOLUTIONStamsulosin 0.4 mg ettczux28/15/17 filledCaremarkXopenex 1.25 mg/3 mL HISTORY AND PHYSICAL [id number] YASH SHIRLEY solution for nebulization USE ONE VIAL VIA NEBULIZER QID08/17/13 filledsurescripts Dexilant Problems Reviewed Problems Kidney stone - Onset: 09/24/2016 Bilateral carotid artery stenosis - Onset: 09/24/2009 Abdominal aortic aneurysm - Onset: 09/24/2016 Achilles tendinitis Tracheobronchitis Chronic obstructive lung disease Asthma Gastroesophageal reflux disease Large prostate - Onset: 06/05/2016 Chest pain Diaphragmatic hernia Pleural effusion Pulmonary hypertension Abdominal aortic aneurysm without rupture - Onset: 09/19/2016 Hiatal hernia Family History Reviewed Family History Mother- Malignant tumor of lung - previously recorded as Cancer, LungFather- Malignant neoplastic disease - esphogeal (previously recorded as Cancer, other)Social History Reviewed Social History General Occupation: Retired (Notes: 2006) Marital status: Smoking Status: Never smoker Caffeine intake: Heavy Surgical History Reviewed Surgical History Removal of gallbladder - open [place] Laparoscopic hiatus hernia repair - 01/02/2015 Laparoscopic hiatus hernia repair - 01/02/2015 Cystoscopy - 06/19/2014 Cataract surgery complex - 11/17/2013 Other - 11/11/2010 - EGD Other - 2009 - PTCA with stenting Other - 1997 - stent LLE Past Medical History Reviewed Past Medical History Atrial fibrillation: Y COPD: Y Heart Disease: Y - CAD Hiatal Hernia: Y High Blood Pressure: Y Joint Pain or Swelling: Y Documents for Discussion N/A Screening HISTORY AND PHYSICAL [id number] YASH SHIRLEY None recorded. HPI Peripheral Vascular Disease Reported by patient. Severity: not limiting Associated Symptoms: no weakness; no numbness; no paresthesias; no skin discoloration; no fever enlarging abdominal aortic aneurysm ROS Patient reports weight loss (10 lbs) and exercise intolerance (claudication bilateral lower extremity) but reports no fever, no night sweats, and no significant weight gain. He reports difficulty hearingbut reports no ear pain. He reports shortness of breath when walking but reports no chest pain, no arm pain on exertion, no shortness of breath when lying down, no palpitations, and no known heart murmur. He reports shortness of breath but reports no cough, no wheezing, and no coughing up blood. He reports abdominal pain but reports no vomiting, normal appetite, no diarrhea, not vomiting blood, no nausea, and no constipation. He reports difficulty urinating but reports no incontinence, no hematuria, and no increased frequency. He reports muscle aches, muscle weakness, and back pain but reports no arthralgias/joint pain and no swelling in the extremities. He reports fatigue. He reports no dry eyes, no irritation, and no vision change. He reports no frequent nosebleeds and no nose/sinus problems. He reports no sore throat, no bleeding gums, no snoring, no dry mouth, no mouth ulcers, no oral abnormalities, and no teeth problems. He reports no abnorma l mole, no jaundice, and no rashes. He reports no loss of consciousness, no weakness, no numbness, no seizures, no dizziness, and no headaches. He reports no depression, no sleep disturbances, feeling safe in relationship, and no alcohol abuse. He reports no swollen glands and no bruising. He reports no runny nose, no sinus pressure, no itching, no hives, and no frequent sneezing. ROS as noted in the HPI Physical Exam Patient is a 76-year-old male. Constitutional: General Appearance well nourished and developed and healthy-appearing. Level of Distress NAD. Ambulation ambulating normally. Cardiovascular: Apical Impulse not displaced or no thrill. Heart Auscultation normal s1 and s2; no murmurs, rubs, or gallops; and RRR. Arterial Pulses no abdominal aorta bruits, femoral bruits, or popliteal bruits; popliteal diminished (bilaterally) and dorsalis pedis not palpable (bilaterally); and 2+ bilateral, carotid 2+ bilateral, and femoral 2+ bilateral. Edema no edema or varicosities. Lungs: Repiratory Effort no dyspnea and use of accessory muscles; self PEEP. Percussion no dullness or flatness and hyperresonance. Auscultation no wheezing, rhonchi, or rales / crackles and breathing sounds normal, CTA except as noted, and diminished air movement. Abdomen: Bowl Sounds normal. Inspection and Palpation no tenderness, guarding, masses, or rebound tenderness and soft and non-distended; abdominal aortic aneurysm nontender. Liver non-tender and no hepatomegaly. Spleen non-tender and no splenomegaly. Hernia none palpable. Musculoskeletal System: Gait And Stance normal gait and stance. Digits and Nails normal nails and no cyanosis. HISTORY AND PHYSICAL [id number] YASH SHIRLEY Neurologic: Cranial Nerves grossly intact. Reflexes DTRs 2+ bilaterally throughout. Sensation grossly intact. Lymph Nodes: Lymph Nodes no cervical LAD, supraclavicular LAD, axillary LAD, or inguinal LAD. Eyes: Lids and Conjunctivae no discharge or pallor and non-injected. Pupils PERRLA. Cornea grossly intact. EOM EOMI. Lens clear. Sclerae non-icteric. Neck: Neck no masses, enlarged lymph nodes, or carotid bruits and supple and trachea midline. Thyroid no enlargement or nodules and non-tender. Skin: Inspection and Palpation no rash, lesions, ulcers, jaundice, or abnormal nevi. Assessment / Plan enlarging abdominal aortic aneurysm 5.6 cm in diameter 1. Abdominal aortic aneurysm without rupture I71.4: Abdominal aortic aneurysm, without rupture ABDOMINAL AORTIC ANEURYSM: CARE INSTRUCTIONS Discussion Notes patient is not a candidate for endovascular stent repair He would like to obtain different opinions We will research this for him We'll call for follow-up LISSETTE AVILA MD at 1352 CC: [id number] DICTATION DATE: 04/23/17 1400 PSYCHIATRY RESIDENT: ISIDRO 06/23/17 1209 ADM IN [facility] [address] [id number]
--- NOTE | ~2017-06-23 | OP ---
PATIENT NAME: YASH SHIRLEY MEDICAL RECORD: [id number] :42 LOCATION:D.MS [place]2225 ADMISSION DATE:06/23/17 SURGEON: JOVANNA SCHULTZ MD DATE OF OPERATION: 06/25/2017 PREOPERATIVE DIAGNOSES: 1. Postoperative left groin wound dehiscence with infection. 2. Left thigh subcutaneous hematoma. POSTOPERATIVE DIAGNOSES: 1. Postoperative left groin wound dehiscence with infection. 2. Left thigh subcutaneous hematoma. 3. Apparent necrotizing soft tissue infection of the left groin wound. PROCEDURES: 1. Excisional debridement of left groin wound. The dimensions of the debridement, including margins, measured 6.5 x 5.5 cm included skin and subcutaneous tissue as well as necrotic fat, exudate as well as what appeared to be microabscesses. 2. Incision and drainage of left groin hematoma with marsupialization and packing of the wound. 3. Wound VAC application to the excisional debridement site. SURGEON: Jovanna Schultz MD GREEN PIPEFITTER: None. BLOOD LOSS: Less than 25 mL. ANESTHESIA: General. COMPLICATIONS: None. I debrided back to viable bleeding tissue. This was a sharp debridement with a scalpel. OPERATIVE COURSE: The patient was conveyed to the operating room electively on 06/25/2017. General anesthesia was induced by the anesthesia staff. The left groin and left thigh were sterilely prepped and draped. I incised into the subcutaneous hematoma that was present medial inferior to the left groin wound, which was within the groin crease. I expressed clotted blood. It had no odor to it. I irrigated in the hematoma cavity with hydrogen peroxide. I then marsupialized the wound with a running locking 3-0 Vicryl Rapide suture. I then packed it with iodoform gauze. Attention was then turned to the necrotic wound of the left groin. Through the use of double curvilinear incisions, I excised the wound with the scalpel. I excised first back to tissue that did not bleed and further excisions with a scalpel were necessary in order to debride back to bleeding viable tissue. The tissues debrided were skin, subcutaneous tissue, necrotic tissue, exudate as well as what appeared to be microabscesses. Meticulous hemostasis was achieved with the electrocautery. Cultures were obtained. I then irrigated with hydrogen peroxide. I then applied a black wound VAC sponge. Cellophane-type dressings were applied over the wound VAC sponge. I then scored the cellophane-type dressings and applied a wound VAC disc. The wound VAC disc was OPERATIVE REPORT [id number] YASH SHIRLEY applied to suction which held a good "raisin" indicating a good seal without leakage. The patient was then extubated and conveyed to the post-anesthesia care unit where he was in stable condition. TRANSINT:[id number] Voice Confirmation ID: [id number] DOCUMENT ID: [id number] JOVANNA SCHULTZ MD at 1227 CC: Keya SANTA OXNER, TROY DO and LISSETTE AVILA [id number] DICTATION DATE: 08/07/17 1557 SALESPERSON PET[employer] AND PET SUPPLIES: 08/07/17 1829 DIS IN 06/27/17 [address] [place] [address]
[~2017-06-23 11:22] MED LIST changes: -HYDROCODONE-APA1 TAB PO
[2017-06-23 13:00] LABS: HEMOGLOBIN 12.1 g/dL (13.5-17.5); MCH 30.9 pg (26.0-34.0); MCHC 32.7 g/dL (31.0-37.0); MCV 94.6 fL (80.0-100.0); MEAN PLATELET VOLUME 11.1 fL (7.4-10.4); RBC 3.91 10x6/uL (4.20-6.10); RDW 14.2 % (11.5-14.5)
[2017-06-23 13:37] LABS: ALBUMIN 3.6 g/dL (3.4-5.0); ALKALINE PHOSPHATASE 80 U/L (46-116); ALT (SGPT) 11 U/L (10-68); BILIRUBIN - TOTAL 0.46 mg/dL (0.2-1.3); CALC OSMOLALITY 273 mosm/kg (275-300); CALCIUM 8.4 mg/dL (8.5-10.1); CARBON DIOXIDE 25.5 mmol/L (21.0-32.0); CHLORIDE - SERUM 100 mmol/L (98-107); GLUCOSE 106 mg/dL (74-106); POTASSIUM - SERUM 4.4 mmol/L (3.5-5.1); PROTEIN - SERUM 6.8 g/dL (6.4-8.2); SODIUM 137 mmol/L (136-145); UREA NITROGEN 13 mg/dL (7-18); eGFR NON AFRICAN AMERICAN 77 mL/min (90-120)
[2017-06-23 17:18] VITALS: BP 132/67
[2017-06-23 20:00] VITALS: BP 120/64
[2017-06-23 20:06] VITALS: BP 132/67; BMI 26.2
[2017-06-23 23:56] VITALS: BP 122/59
[2017-06-24 04:00] VITALS: BP 138/66
[2017-06-24] MEDS ORDERED: PROPAFENONE HC150 MG PO (07:53)
[2017-06-24 08:41] VITALS: BP 124/65
[2017-06-24 13:01] VITALS: BMI 25.7
[2017-06-24 16:11] VITALS: BP 115/66
[2017-06-24 20:00] VITALS: BP 125/65
[2017-06-24 20:24] VITALS: Ht 175.3 cm; Wt 79.8 kg
[2017-06-25] VITALS: BP 143/62
[2017-06-25 04:00] VITALS: BP 115/64
[2017-06-25 09:11] VITALS: BP 146/66
[2017-06-25 13:21] VITALS: BP 141/67
[2017-06-25 18:38] VITALS: BP 147/69
[2017-06-25 20:00] VITALS: BP 104/45
[2017-06-26] VITALS: BP 105/52
[2017-06-26 04:00] VITALS: BP 105/54
[2017-06-26 05:07] LABS: BASOPHILS 0.2 % (0-2); HEMATOCRIT 32.4 % (42.0-54.0); HEMOGLOBIN 10.4 g/dL (13.5-17.5); IMMATURE GRANULOCYTES 0.5 % (0-5); LYMPHOCYTES 18.5 % (15-50); MCH 30.1 pg (26.0-34.0); MCHC 32.1 g/dL (31.0-37.0); MCV 93.6 fL (80.0-100.0); MEAN PLATELET VOLUME 11.2 fL (7.4-10.4); MONOCYTES 10.7 % (2-11); NEUTROPHILS 68.1 % (40-80); PLATELET COUNT 145 10x3/uL (130-400); RBC 3.46 10x6/uL (4.20-6.10); RDW 14.5 % (11.5-14.5); WBC 6.4 10x3/uL (4.8-10.8)
[2017-06-26 05:10] LABS: CALC OSMOLALITY 272 mosm/kg (275-300); CALCIUM 7.9 mg/dL (8.5-10.1); CARBON DIOXIDE 26.8 mmol/L (21.0-32.0); CHLORIDE - SERUM 103 mmol/L (98-107); CREATININE - SERUM 0.9 mg/dL (0.6-1.3); GLUCOSE 106 mg/dL (74-106); POTASSIUM - SERUM 3.8 mmol/L (3.5-5.1); SODIUM 136 mmol/L (136-145); UREA NITROGEN 14 mg/dL (7-18); eGFR NON AFRICAN AMERICAN 87 mL/min (90-120)
[2017-06-26 08:10] VITALS: BP 140/60
[2017-06-26 11:42] VITALS: BP 164/67
[2017-06-26] MEDS ORDERED: HYDROCODONE-APA1 TAB PO (13:44)
[2017-06-26 16:09] VITALS: BP 123/59
[2017-06-26 22:20] VITALS: BP 127/64
[2017-06-27 01:36] VITALS: BP 119/53
[2017-06-27 05:54] VITALS: BP 139/59
[2017-06-27 08:41] VITALS: BP 163/67
== END 2017-06-27 15:46 | disposition home health service (06) | DRG 857 ==
LOC: D.MS 11:22
PROVIDERS: Internal Medicine Cardiovascular Disease; Student in an Organized Health Care Education/Training Program; Surgery
PROC: 0Y9D0ZZ Drainage of Left Upper Leg, Open Approach (ICD-10-PCS; 2017-06-25)
PROC: 0JBM0ZZ Excision of Left Upper Leg Subcutaneous Tissue and Fascia, Open Approach (ICD-10-PCS; 2017-06-25 09:00)
PROC: 05HC33Z Insertion of Infusion Device into Left Basilic Vein, Percutaneous Approach (ICD-10-PCS; principal; 2017-06-26)
PROC: B54NZZA Ultrasonography of Left Upper Extremity Veins, Guidance (ICD-10-PCS; 2017-06-26)
DX: T81.4XXA Infection following a procedure, initial encounter (principal); L76.32 Postprocedural hematoma of skin and subcutaneous tissue following other procedure; L03.115 Cellulitis of right lower limb; B96.5 Pseudomonas (aeruginosa) (mallei) (pseudomallei) as the cause of diseases classified elsewhere; B95.2 Enterococcus as the cause of diseases classified elsewhere; I71.4 Abdominal aortic aneurysm, without rupture; F41.9 Anxiety disorder, unspecified; J44.9 Chronic obstructive pulmonary disease, unspecified; I25.10 Atherosclerotic heart disease of native coronary artery without angina pectoris

== ENCOUNTER 2017-11-22 06:40 | Observation (INO) | payer MEDICARE, OTHER ==
[2017-11-22] VITALS (7 sets, daily range): BP systolic 130–161; BP diastolic 45–79; Ht 175.3 cm; Wt 82.3 kg
[~2017-11-22] VITALS: Ht 175.3 cm; Wt 82.3 kg
--- NOTE | ~2017-11-22 | CN ---
PATIENT NAME:YASH SHIRLEY MEDICAL RECORD: [id number] : 42 LOCATION:. D.2125 ADMIT DATE: 11/22/17 ACCOUNT: [id number] CONSULTING PHYSICIAN: MULUGETA REID MD REFERRING PHYSICIAN: LIYA LARKIN DO DATE OF CONSULTATION: 11/22/2017 HISTORY OF PRESENT ILLNESS: This is a 77-year-old gentleman with a history of coronary artery disease as well as aortic stenosis, mild cardiomyopathy admitted with dizziness, sweatiness, and near syncope, had episodes in the past. This he did not feel with his previous atrial fibrillation. He is currently preop for endovascular repair of the aorta and has been stable otherwise, playing golf, etc. We are seeing him concerning his cardiovascular status. PAST MEDICAL HISTORY: Includes, 1. History of coronary artery disease. 2. Peripheral vascular disease as described above. 3. Hypertension. 4. Hyperlipidemia. 5. Paroxysmal atrial fibrillation. ALLERGIES: VALIUM AND LEVAQUIN. MEDICATIONS: Typically include propafenone 150 b.i.d., amlodipine 5 every day, MiraLax p.r.n., Xopenex 1.25 q. 6 hours p.r.n. SOCIAL HISTORY: Nonsmoker. He usually takes care all of his ADLs, does have a set exercise program, walks the golf course, etc. REVIEW OF SYSTEMS: The patient reports easy bruising but reports no swollen glands. The patient reports no fever, no night sweats, no significant weight gain, no significant weight loss. No significant exercise tolerance. The patient reports no dry eyes, no irritation, no vision change. Patient reports no difficulty hearing and no ear pain. Patient reports no frequent nose bleeds or nose and sinus problems. Patient reports on arm pain on exertion. No shortness of breath while lying down. No history of heart murmur. Patient reports no cough, no wheezing or coughing up blood. Patient reports no abdominal pain, no vomiting. Normal appetite. No diarrhea and not vomiting blood. No nausea and no constipation. Patient reports no incontinence. No difficulty urinating. No hematuria. No increased frequency. Patient reports no muscle aches. No weakness, no arthralgias, no back pain. No swelling of the extremities. Patient reports no abnormal mole, no jaundice, no rashes. Reports no loss of consciousness. No weakness and no numbness. No seizures, dizziness, or headaches. The patient reports no depression, no sleep disturbance, feeling safe in a relationship and no alcohol abuse. Patient reports on fatigue. Reports no runny nose or sinus pressure. No itching, no hives, and no frequent sneezing. PHYSICAL EXAMINATION: GENERAL: Pleasant gentleman in no acute distress. VITAL SIGNS: Blood pressure 147/55, pulse 55. Occasional extrasystole. HEENT: Normocephalic, atraumatic. NECK: No JVD or bruit. HEART: Regular. LUNGS: [place] are clear. CONSULT REPORT [id number] CASPERYASH CUONG ABDOMEN: Soft, nontender. EXTREMITIES: Pulses 2+ with no edema. NEUROLOGIC: Grossly intact. DIAGNOSTIC DATA: EKG revealed sinus rhythm with occasional PACs, no acute ST-T changes. IMPRESSION: Near syncope. No evidence of recurrent arrhythmias. BUN is elevated, maybe a little bit intravascular volume depleted. PLAN: Plan for echocardiographic study and carotid Doppler, no further recommendations from the cardiovascular standpoint. Could be discharged after these are completed. TRANSINT:[id number] Voice Confirmation ID: [id number] DOCUMENT ID: [id number] MULUGETA REID MD at 0843 CC: [id number] DICTATION DATE: 11/22/1754 REGISTERED ART THERAPIST: 11/22/17 1112 DIS IN 11/24/17 [id number] [place] [address]
--- NOTE | ~2017-11-22 | EC ---
PATIENT:YASH SHIRLEY DATE OF SERVICE: 11/22/17 SEX: M MEDICAL RECORD: [id number] DATE OF : 42 LOCATION:D.M2 D.212 AGE OF PATIENT: 77 ADMISSION DATE: 11/22/17 REFERRING PHYSICIAN: INTERPRETING PHYSICIAN: MULUGETA REID MD ECHOCARDIOGRAM REPORT ECHO CHARGES 4 ECHO COMPLETE Date: 11/22/17 CLINICAL DIAGNOSIS: AFIB ECHOCARDIOGRAPHIC MEASUREMENTS (adult normal given) AC root (d.<3.7cm) 3.7 cm LV Septum d (<1.2 cm> 1.5 cm Valve Excursion 1.4 cm LV Septum (systole) 1.5 cm Left Atria (s.<4.0cm> 5.0 cm LVPW d(<1.2cm) 1.2 cm RV (d.<2.3cm) 4.2 cm LVPW (sytole) 1.2 cm LV diastole(<5.6CM) 4.9 cm MV E-F(>70mm/sec) cm LV systole 4.3 cm LVOT Diameter 1.7 cm MV exc.(>10mm) cm Est.ejection fraction (50-75%) % DOPPLER: LVIT cm/sec A 96 cm/sec E 62 cm/sec LA cm/sec RVSP 28.1 mmHg LVOT 143 cm/sec AOP1/2T m/s Asc. Ao 243 cm/sec RVOT 96 cm/sec RA cm/sec PA 103 cm/sec AV Gradient Peak 23.7 mmHg AV Mean 15.9 mmHg AV Area 1.1 cm MV Gradient Peak 3.7 mmHg MV Mean 1.2 mmHg MV Area cm COMMENTS: Carbider: Tripp MANCUSO Law Office Assistant: 3 Dr. Cruz TAPE# PACS Pericardial Effusion N DATE OF SERVICE: Adequate 2D echo, color flow, spectral Doppler, and M-mode. Mild LVH. LV internal dimension is normal, wall motion normal, EF is greater than or equal to 55%. Aortic valve is calcified with restriction of leaflet motion. Calculated valve area of 1.4 mmHg probably putting this in the mild range. Left atrium dilated at 5.0 cm. Mitral valve shows no prolapse. Mild MR. Right-sided chamber size grossly normal. [id number]-sotrrpwa TR. TRANSINT:[id number] Voice Confirmation ID: [id number] DOCUMENT ID: [id number] ECHOCARDIOGRAM REPORT [id number] YASH SHIRLEY,MULUGETA Dickens MD at 0843 CC: [id number] DICTATION DATE: 11/23/17907 BUSINESS SYSTEMS ADMINISTRATOR: 11/23/17 1031 DIS IN 11/24/17 [facility] [address] [place] [address]
[~2017-11-22 06:40] MED LIST changes: +HYDROCODONE-APA1 TAB PO
[2017-11-22 07:07] LABS: BASOPHILS 0.3 % (0-2); EOSINOPHILS 0.9 % (0-7); HEMATOCRIT 41.6 % (42.0-54.0); HEMOGLOBIN 13.8 g/dL (13.5-17.5); IMMATURE GRANULOCYTES 0.5 % (0-5); LYMPHOCYTES 12.1 % (15-50); MCH 30.4 pg (26.0-34.0); MCHC 33.2 g/dL (31.0-37.0); MCV 91.6 fL (80.0-100.0); MEAN PLATELET VOLUME 12.1 fL (7.4-10.4); MONOCYTES 8.9 % (2-11); NEUTROPHILS 77.3 % (40-80); PLATELET COUNT 156 10x3/uL (130-400); RBC 4.54 10x6/uL (4.20-6.10); RDW 14.9 % (11.5-14.5); WBC 7.8 10x3/uL (4.8-10.8)
[2017-11-22 07:19] LABS: APTT 27.1 SECONDS (22.8-39.4); INR 0.96 (0.85-1.17); PROTIME 12.4 SECONDS (11.6-15.0)
[2017-11-22 07:24] LABS: ALBUMIN 3.3 g/dL (3.4-5.0); ALKALINE PHOSPHATASE 51 U/L (46-116); ALT (SGPT) 16 U/L (10-68); BILIRUBIN - TOTAL 0.38 mg/dL (0.2-1.3); CALC OSMOLALITY 279 mosm/kg (275-300); CALCIUM 8.5 mg/dL (8.5-10.1); CARBON DIOXIDE 27.8 mmol/L (21.0-32.0); CHLORIDE - SERUM 105 mmol/L (98-107); CREATININE - SERUM 0.9 mg/dL (0.6-1.3); GLUCOSE 104 mg/dL (74-106); POTASSIUM - SERUM 4.5 mmol/L (3.5-5.1); PROTEIN - SERUM 6.6 g/dL (6.4-8.2); SODIUM 139 mmol/L (136-145); UREA NITROGEN 19 mg/dL (7-18); eGFR NON AFRICAN AMERICAN 87 mL/min (90-120)
[2017-11-22 07:32] LABS: CREATINE KINASE 34 UL (21-232); PRO BNP 908 pg/mL (0-450)
[2017-11-22 07:35] LABS: TROPONIN-I < 0.017 ng/mL (0.000-0.060)
[2017-11-22 07:42] LABS: LIPASE 191 U/L (73-393); MAGNESIUM - SERUM 1.9 mg/dL (1.8-2.4)
[2017-11-23 04:42] LABS: BASOPHILS 0.6 % (0-2); EOSINOPHILS 2.2 % (0-7); HEMATOCRIT 37.9 % (42.0-54.0); HEMOGLOBIN 12.4 g/dL (13.5-17.5); IMMATURE GRANULOCYTES 0.6 % (0-5); LYMPHOCYTES 25.1 % (15-50); MCHC 32.7 g/dL (31.0-37.0); MCV 91.8 fL (80.0-100.0); MEAN PLATELET VOLUME 11.5 fL (7.4-10.4); MONOCYTES 10.3 % (2-11); NEUTROPHILS 61.2 % (40-80); PLATELET COUNT 141 10x3/uL (130-400); RBC 4.13 10x6/uL (4.20-6.10); RDW 15.2 % (11.5-14.5)
[2017-11-23 04:49] LABS: WBC 5.4 10x3/uL (4.8-10.8)
[2017-11-23 05:00] LABS: ALBUMIN 2.9 g/dL (3.4-5.0); ALKALINE PHOSPHATASE 42 U/L (46-116); ALT (SGPT) 14 U/L (10-68); BILIRUBIN - TOTAL 0.37 mg/dL (0.2-1.3); CALC OSMOLALITY 284 mosm/kg (275-300); CALCIUM 8.3 mg/dL (8.5-10.1); CARBON DIOXIDE 29.9 mmol/L (21.0-32.0); CHLORIDE - SERUM 106 mmol/L (98-107); CREATININE - SERUM 0.9 mg/dL (0.6-1.3); GLUCOSE 107 mg/dL (74-106); MAGNESIUM - SERUM 1.9 mg/dL (1.8-2.4); PHOSPHOROUS 3.7 mg/dL (2.5-4.9); PROTEIN - SERUM 5.8 g/dL (6.4-8.2); SODIUM 142 mmol/L (136-145); UREA NITROGEN 17 mg/dL (7-18); eGFR NON AFRICAN AMERICAN 87 mL/min (90-120)
[2017-11-23 07:16] VITALS: BP 145/58
[2017-11-23 08:31] VITALS: BP 144/63
[2017-11-23 10:48] VITALS: BP 100/56
[2017-11-23 11:13] VITALS: BP 100/56
[2017-11-23 14:53] VITALS: BP 172/81
[2017-11-23 22:07] VITALS: BP 153/73
[2017-11-24 06:21] VITALS: BP 141/59
[2017-11-24 07:48] VITALS: BP 142/59
[2017-11-24 10:42] VITALS: BP 156/65
== END 2017-11-24 12:51 | disposition home or self-care (01) ==
LOC: D.ER 06:40 → D.M2 07:58 → OBSVTIME 07:59 → D.M2 11-24 12:51
PROVIDERS: Emergency Medicine; Family Medicine
DX: R55 Syncope and collapse (principal); I25.10 Atherosclerotic heart disease of native coronary artery without angina pectoris; Z95.5 Presence of coronary angioplasty implant and graft; I35.0 Nonrheumatic aortic (valve) stenosis; I42.9 Cardiomyopathy, unspecified; I71.4 Abdominal aortic aneurysm, without rupture; E78.5 Hyperlipidemia, unspecified; I73.9 Peripheral vascular disease, unspecified; I10 Essential (primary) hypertension; J44.9 Chronic obstructive pulmonary disease, unspecified; I48.0 Paroxysmal atrial fibrillation; Z87.891 Personal history of nicotine dependence